=== PATIENT | female | born 1955 | race Caucasian/White ===

== ENCOUNTER → 2016-07-23 | Outpatient (CLI) | payer BC | LOC: MC.RAD 12:59 | DX: Z12.31 Encounter for screening mammogram for malignant neoplasm of breast (principal) ==

== ENCOUNTER → 2019-05-30 | Outpatient (CLI) | payer MEDICARE, BC | LOC: MC.RAD 13:05 | DX: Z12.31 Encounter for screening mammogram for malignant neoplasm of breast (principal); Z79.899 Other long term (current) drug therapy ==

== ENCOUNTER → 2022-09-03 | Outpatient (CLI) | payer MEDICARE, BC | LOC: MC.RAD 08-04 11:15 | DX: Z12.31 Encounter for screening mammogram for malignant neoplasm of breast (principal) ==